=== PATIENT | male | born 1995 | race American Indian/Alaskan Native ===

== ENCOUNTER 2017-10-31 01:52 | Emergency (ER) | payer SELFPAY ==
[2017-10-31 02:33] VITALS: RESP 16
[2017-10-31] MEDS ORDERED: cefTRIAXone (Rocephin) 250 mg Inj IM STA (03:47)
--- NOTE | 2017-10-31 04:18 | C.PDOC ---
History Of Present Illness 22 year old male presents to the ED complaining of sore throat and dysuria x1 week. He states that his partner was recently diagnosed with herpes and he would like to be evaluated. He also complains of penile lesions. Time Seen by Provider: 10/31/17 03:24 Chief Complaint (Nursing): ENT Problem History Per: Patient History/Exam Limitations: no limitations Onset/Duration Of Symptoms: Days Current Symptoms Are (Timing): Still Present Quality Of Discomfort: Burning Associated Symptoms: denies: Fever, Chills Recent travel outside of the [place]: No Past Medical History Reviewed: Historical Data, Nursing Documentation, Vital Signs Vital Signs: Last Vital Signs Temp 99.4 F 10/31/17 02:28 Pulse 96 H 10/31/17 02:28 Resp 16 10/31/17 02:28 BP 119/71 10/31/17 02:28 Pulse Ox 100 10/31/17 04:19 Family History: States: No Known Family Hx - Social History Hx Alcohol Use: Yes Hx Substance Use: No - Immunization History Hx Tetanus Toxoid Vaccination: No Hx Influenza Vaccination: Yes Hx Pneumococcal Vaccination: No Review Of Systems Constitutional: Negative for: Fever, Chills ENT: Positive for: Throat Pain. Negative for: Ear Pain Cardiovascular: Negative for: Chest Pain Gastrointestinal: Negative for: Nausea, Abdominal Pain Genitourinary: Positive for: Dysuria. Negative for: Penile Discharge, Scrotal Pain Skin: Positive for: Lesions (penile). Negative for: Rash Neurological: Negative for: Headache Physical Exam - Physical Exam Appears: Well, Non-toxic, No Acute Distress Skin: Normal Color, Warm, Dry Head: Atraumatic, Normacephalic Eye(s): bilateral: Normal Inspection, PERRL, EOMI Oral Mucosa: Moist Throat: Normal Neck: Normal ROM, Supple Chest: Symmetrical Cardiovascular: Rhythm Regular Respiratory: Normal Breath Sounds, No Rales, No Rhonchi, No Wheezing Gastrointestinal/Abdominal: Soft, No Tenderness Back: Normal Inspection Male Genital: No Testicular Tenderness, No Testicular Swelling, No Inguinal Tenderness, No Inguinal Swelling, No Scrotal Swelling, Other (Mild folliculitis noted, no signs of infection, no herpetic sores, no penile discharge or tenderness) Extremity: Normal ROM, No Deformity Extremity: Bilateral: Atraumatic Neurological/Psych: Oriented x3, Normal Speech ED Course And Treatment O2 Sat by Pulse Oximetry: 100 Progress Note: Will prophylactically treat for STD. GC/Chlamydia cultures sent. Pt instructed in safe sex and clinic follow up Disposition - Disposition Referrals: [facility] [Outside] Disposition: HOME/ ROUTINE Disposition Time: 04:21 Condition: IMPROVED Additional Instructions: Please follow up in clinic Return if worse Instructions: Screening for Sexually Transmitted Infections Forms: [facility] (Haitian) - Clinical Impression Clinical Impression: Urethritis - Scribe Statement The provider has reviewed the documentation as recorded by the Scribe (Thang Alejandro) All medical record entries made by the Scribe were at my direction and personally dictated by me. I have reviewed the chart and agree that the record accurately reflects my personal performance of the history, physical exam, medical decision making, and the department course for this patient. I have also personally directed, reviewed, and agree with the discharge instructions and disposition.
[2017-10-31 04:55] VITALS: BP 117/73; PULSE 72; TEMP 98.8; O2SAT 99
== END 2017-10-31 04:55 | disposition home or self-care (01) ==
LOC: C.ER 01:52
DX: N34.2 Other urethritis (principal)
CPT/HCPCS: 87491; 87591; 96372; 99284; J0696

== ENCOUNTER 2017-12-07 14:29 | Emergency (ER) | payer MEDICAID ==
[2017-12-07 14:42] VITALS: BP 117/75; PULSE 72; RESP 18; TEMP 98.7; O2SAT 100
[2017-12-07] MEDS ORDERED: cefTRIAXone (Rocephin) 250 mg Inj IM STA (15:29)
[2017-12-07 15:31] LABS: URINE BILIRUBIN NEGATIVE (NEGATIVE); URINE BLOOD NEGATIVE (NEGATIVE); URINE CLARITY Hazy (Clear); URINE COLOR Yellow (YELLOW); URINE GLUCOSE (UA) NORMAL (Normal); URINE LEUKOCYTE ESTERASE 2+ Leu/uL (Negative); URINE PROTEIN 1+ mg/dL (NEGATIVE)
--- NOTE | 2017-12-07 15:53 | C.PDOC ---
History Of Present Illness 22yo male, presents to ED for evaluation of dysuria and green colored penile discharge for the past 4 days. Patient states a few days prior to onset of his symptoms, he had unprotected sexual intercourse. He denies any associated penile pain, testicular pain, abdominal pain, nausea, vomiting, or fever. Patient states he had similar episodes a couple months ago and was diagnosed with herpes. He offers no other medical complaints. Time Seen by Provider: 12/07/17 14:37 Chief Complaint (Nursing): Male Genitourinary History Per: Patient History/Exam Limitations: no limitations Onset/Duration Of Symptoms: Days Current Symptoms Are (Timing): Still Present Associated Symptoms: Urinary Symptoms. denies: Fever, Chills, Nausea, Vomiting Past Medical History Reviewed: Historical Data, Nursing Documentation, Vital Signs Vital Signs: Last Vital Signs Temp 98.7 F 12/07/17 14:40 Pulse 72 12/07/17 14:40 Resp 18 12/07/17 14:40 BP 117/75 12/07/17 14:40 Pulse Ox 100 12/07/17 17:40 - Medical History PMH: No Chronic Diseases Surgical History: No Surg Hx Family History: States: No Known Family Hx - Social History Hx Alcohol Use: Yes Hx Substance Use: No - Immunization History Hx Tetanus Toxoid Vaccination: No Hx Influenza Vaccination: Yes Hx Pneumococcal Vaccination: No Review Of Systems Except As Marked, All Systems Reviewed And Found Negative. Constitutional: Negative for: Fever, Chills Gastrointestinal: Negative for: Nausea, Vomiting, Abdominal Pain Genitourinary: Positive for: Dysuria, Penile Discharge. Negative for: Scrotal Pain, Penile Pain Physical Exam - Physical Exam Appears: Non-toxic, No Acute Distress Skin: Normal Color, Warm, Dry Head: Atraumatic, Normacephalic Eye(s): bilateral: EOMI Nose: Normal Oral Mucosa: Moist Neck: Normal ROM, Supple Chest: Symmetrical Cardiovascular: Rhythm Regular Respiratory: Normal Breath Sounds Gastrointestinal/Abdominal: Normal Exam, Soft, No Tenderness Male Genital: No Testicular Tenderness, No Testicular Swelling, No Inguinal Tenderness, No Inguinal Swelling, No Scrotal Swelling, Circumcised, Other ((+) discharge noted. Exam chaperoned by MARCO ANTONIO Pillai) Extremity: Normal ROM Neurological/Psych: Oriented x3 ED Course And Treatment O2 Sat by Pulse Oximetry: 100 (RA) Pulse Ox Interpretation: Normal Progress Note: Patient given Zithromax, Rocephin and Flagyl in ER. Urine culture as well as Chlamydia, GC RNA/TMA cultures sent. Instructed on use of protection during sexual intercourse and partner treatment. Patient also instructed to follow up with PCP in 2-3 days. Case discussed with Dr. Pineda, who is agreeable with plan and treatment. Disposition - Disposition Disposition: HOME/ ROUTINE Disposition Time: 15:52 Condition: STABLE Additional Instructions: Follow up with urology in 1-2 days. Return to ER if symptoms persist or worsen. Instructions: Urethritis Forms: [email or web address] (Swiss) - Clinical Impression Clinical Impression: Urethritis - PA / [employer] / Resident Statement MD/DO has reviewed & agrees with the documentation as recorded. - Scribe Statement The provider has reviewed the documentation as recorded by the Scribe (Elizabeth Zaragoza) Provider Attestation: All medical record entries made by the Scribe were at my direction and personally dictated by me. I have reviewed the chart and agree that the record accurately reflects my personal performance of the history, physical exam, medical decision making, and the department course for this patient. I have also personally directed, reviewed, and agree with the discharge instructions and disposition.
== END 2017-12-07 16:23 | disposition home or self-care (01) ==
LOC: C.ER 14:29
DX: N34.2 Other urethritis (principal)
CPT/HCPCS: 81001; 87086; 87491; 87591; 96372; 99284; J0696